=== PATIENT | female | born 1970 | race Two or more races ===

== ENCOUNTER 2018-07-09 20:39 | Emergency (ER) | payer SELFPAY ==
[~2018-07-09] VITALS: Ht 157.5 cm; Wt 59.0 kg
[2018-07-09 21:23] VITALS: BP 125/79
[2018-07-09 22:30] LABS: Urine Bacteria NONE SEEN /hpf (None Seen); Urine Mucus FEW (None Seen); Urine WBC 1 /hpf (0 - 5)
[2018-07-09 22:34] LABS: Urine Blood Normal /uL (Negative); Urine Specific Gravity 1.028 (1.001-1.035)
== END 2018-07-09 22:14 | disposition left against medical advice (07) ==
LOC: ER 20:39
DX: R51 Headache (principal); Z53.21 Procedure and treatment not carried out due to patient leaving prior to being seen by health care provider
CPT/HCPCS: 81001; 81025